=== PATIENT | female | born 1940 | race Caucasian/White ===

== ENCOUNTER 2017-02-28 11:00 | Emergency (ER) | payer OTHER ==
[~2017-02-28] VITALS: Ht 144.8 cm; Wt 66.4 kg
[~2017-02-28 11:00] MED LIST: ACET325T96 PO; ASPEC81 PO; ATOR10TA88 PO; CHOL100010 PO; ESCI1TAB10 PO; LEVE500T PO; LEVO25TA PO; LORA-741 PO; TRAZ1TAB16 PO; VENL75TA4 PO
[2017-02-28 11:08] VITALS: TEMP 36; Ht 144.8 cm; Wt 66.4 kg
[2017-02-28] MEDS ORDERED: ATV/1 PO (11:39)
[2017-02-28] MEDS ORDERED: LEVO50TA6 PO (11:39)
[2017-02-28] MEDS ORDERED: LTRSCR45 TOP (11:39)
[2017-02-28] MEDS ORDERED: MOML PO (11:39)
[2017-02-28] MEDS ORDERED: DOCU-94 PO (11:39)
[2017-02-28] MEDS ORDERED: MEMA1CAP2 PEG (11:39)
[2017-02-28] MEDS ORDERED: QUET1TAB30 PO (11:39)
[2017-02-28] MEDS ORDERED: ACET-1256 PO (11:39)
[2017-02-28] MEDS ORDERED: HYDR-5688 PO (11:39)
[2017-02-28] MEDS ORDERED: OXCA150T2 PO (11:39)
--- NOTE | 2017-02-28 12:25 | DIAGNOSTIC IMAGING REPORT ---
LEFT ANKLE 3 VIEWS CLINICAL HISTORY: Left leg injury. FINDINGS: 3 views of left ankle are obtained. No prior studies are available for comparison at the time of dictation. The skeletal structures are osteopenic. No fracture is seen. The ankle mortise is intact. Degenerative spurring is noted along the dorsal aspect of the tarsal bones. A tiny dorsal calcaneal enthesophyte is observed. There is no joint effusion. The overlying soft tissues are within normal limits. IMPRESSION: Osteopenia, degenerative change, and dorsal heel spur as above. No left ankle fracture is identified. Electronically signed by: Sb Martinez M.D. 02/28/2017 12:24 PM Dictated Date/Time: 02/28/2017 12:23 PM
--- NOTE | 2017-02-28 12:30 | DIAGNOSTIC IMAGING REPORT ---
LEFT FOOT 3 VIEWS CLINICAL HISTORY: Left foot injury. FINDINGS: 3 views of left foot are obtained. No prior studies are available for comparison at the time of dictation. The skeletal structures are osteopenic. There is questionable cortical irregularity at the base of the third and fourth metatarsals. Subtle fracture is not excluded. No additional findings are concerning for fracture. Mild arthritic change is present the first metatarsophalangeal joint. There is a dorsal calcaneal enthesophyte, and degenerative spurring is seen along the dorsal aspect of the tarsal bones. Mild soft tissue swelling suggested in the forefoot. IMPRESSION: 1. Soft tissue swelling is noted in the forefoot. 2. Mild cortical irregularity is seen at the base of the third and fourth metatarsals. This is indeterminant and subtle fracture is not excluded. Clinical point tenderness at this site. 3. No additional findings are concerning for acute fracture. 4. Osteopenia and degenerative change as above. Electronically signed by: Sb Martinez M.D. 02/28/2017 12:29 PM Dictated Date/Time: 02/28/2017 12:26 PM
[2017-02-28 13:40] VITALS: BP 154/86; PULSE 74; O2SAT 96
--- NOTE | 2017-02-28 14:02 | EMERGENCY ROOM VISIT NOTE ---
History Report prepared by Susan: Sue Loving Under the Supervision of: Dr. Bird Fernandez D.O. First contact with patient: 11:35 Chief Complaint: ANKLE PAIN Stated Complaint: ANKLE & FOOT PAIN History of Present Illness The patient is a 76 year old female who presents to the Emergency Room with complaints of worsening left ankle and left foot pain that started yesterday. The patient came to the ED via ambulance from home. EMS reported that the patient's left ankle is internally rotated at baseline secondary to a previous stroke. The patient's daughter states that the patient was sitting in her wheelchair last night while her caregiver was trying to change her pants when she slid out of the wheelchair. The patient's ankle internally rotated as she fell. The patient's daughter noticed ecchymosis on the patient's left lateral ankle today so she felt that she needed to be evaluated. The patient is not ambulatory. The patient's daughter states that she has decreased sensation in her left foot secondary to a previous stroke. Source of History: patient Onset: yesterday Position: ankle (left), foot (left) Quality: other (left ankle and left foot pain) Timing: worsening Note: ecchymosis on left lateral ankle Review of Systems See HPI for pertinent positives & negatives. A total of 10 systems reviewed and were otherwise negative. Past Medical & Surgical Medical Problems: (1) Acute ischemic stroke (2) Anxiety (3) Depression (4) Hemorrhagic stroke (5) Hypothyroidism (6) Seizure Family History Cancer Diabetes mellitus Heart disease Lung disease Social History Smoking Status: Never Smoker Housing Status: lives with family Current/Historical Medications Scheduled Aspirin (Aspirin EC Low Dose), 81 MG PO QAM Atorvastatin (Lipitor), 10 MG PO DAILY Docusate Sodium (Colace), 1 CAP PO BID Escitalopram Oxalate (Lexapro), 20 MG PO DAILY Hydrocodone/Acetaminophen 5MG/325MG ([place] 5MG/325MG), 1 TAB PO BID Levetiractam (Levetiracetam), 1,000 MG PO BID Levothyroxine Sodium (Levothyroxine Sodium), 1 TAB PO DAILY Memantine Hcl (Namenda Xr), 14 MG PEG DAILY Oxcarbazepine (Trileptal), 150 MG PO BID Quetiapine Fumarate (Seroquel), 25 MG PO QPM Scheduled PRN Acetaminophen (Tylenol), 500 MG PO Q6 PRN for Mild Pain Betamethasone/Clotrimazole (Clotrimazole/Betameth Crm 45 Gm), 1 APPL TOP UD PRN for SKI IMPAIRMENT Lorazepam (Ativan), 1 MG PO Q6H PRN for Anxiety Magnesium Hydroxide (Milk Of Magnesia), 30 ML PO DAILY PRN for Constipation Allergies Coded Allergies: Penicillins (Verified Allergy, Unknown, unknown, 08/26/14) Physical Exam Vital Signs Date Time Temp Pulse Resp B/P (MAP) Pulse Ox O2 Delivery O2 Flow Rate FiO2 02/28/17 13:15 77 16 154/86 96 Room Air 02/28/17 11:08 36.0 62 18 139/79 95 Room Air Physical Exam CONSTITUTIONAL/VITAL SIGNS: Reviewed / noted above. GENERAL: Non-toxic in appearance. INTEGUMENTARY: Warm, dry, and [place]. HEAD: Normocephalic. EYES: without scleral icterus or trauma. ENT/OROPHARYNX: clear and moist. LYMPHADENOPATHY/NECK: Is supple without lymphadenopathy or meningismus. RESPIRATORY: Lungs clear and equal. CARDIOVASCULAR: Regular rate and rhythm. GI/ABDOMEN: Soft and nontender. No organomegaly or pulsatile mass. No rebound or guarding. Normal bowel sounds. EXTREMITIES: Ecchymosis noted on the left lateral ankle and foot mainly in the area of the lateral malleolus. BACK: No CVA tenderness. NEUROLOGICAL: Intact without focal deficits. PSYCHIATRIC: normal affect. MUSCULOSKELETAL: Normally developed with good muscle tone. Medical Decision & Procedures ER Provider Diagnostic Interpretation: Radiology results as stated below per my review and radiologist interpretation: LEFT ANKLE 3 VIEWS FINDINGS: 3 views of left ankle are obtained. No prior studies are available for comparison at the time of dictation. The skeletal structures are osteopenic. No fracture is seen. The ankle mortise is intact. Degenerative spurring is noted along the dorsal aspect of the tarsal bones. A tiny dorsal calcaneal enthesophyte is observed. There is no joint effusion. The overlying soft tissues are within normal limits. IMPRESSION: Osteopenia, degenerative change, and dorsal heel spur as above. No left ankle fracture is identified. Electronically signed by: Sb Martinez M.D. 02/28/2017 12:24 PM Dictated Date/Time: 02/28/2017 12:23 PM LEFT FOOT 3 VIEWS FINDINGS: 3 views of left foot are obtained. No prior studies are available for comparison at the time of dictation. The skeletal structures are osteopenic. There is questionable cortical irregularity at the base of the third and fourth metatarsals. Subtle fracture is not excluded. No additional findings are concerning for fracture. Mild arthritic change is present the first metatarsophalangeal joint. There is a dorsal calcaneal enthesophyte, and degenerative spurring is seen along the dorsal aspect of the tarsal bones. Mild soft tissue swelling suggested in the forefoot. IMPRESSION: 1. Soft tissue swelling is noted in the forefoot. 2. Mild cortical irregularity is seen at the base of the third and fourth metatarsals. This is indeterminant and subtle fracture is not excluded. Clinical point tenderness at this site. 3. No additional findings are concerning for acute fracture. 4. Osteopenia and degenerative change as above. Electronically signed by: Sb Martinez M.D. 02/28/2017 12:29 PM Dictated Date/Time: 02/28/2017 12:26 PM ED Course 1253: Previous medical records were reviewed. The patient was evaluated in room C10. A complete history and physical examination was performed. 1256: After examination, I discussed the results and findings with the patient and her family. They verbalized agreement of the treatment plan. The patient was discharged home. Medical Decision Differentials considered include fracture, dislocation, neurovascular compromise , compartment syndrome, soft tissue injury. Medication Reconciliation: I attest that I have personally reviewed the patient' s current medication list. Patient was found to have a slightly elevated blood pressure due to circumstances. I do not believe that the patient requires hypertension monitoring. This is a 76-year-old female who presents to the ED with a chief complaint of left foot injury. Details listed above. Patient has ecchymosis of the lateral aspect of the proximal foot and left lateral malleolus. X-rays did not show an obvious fracture. There was a lucency in the base of the third and fourth metatarsals. The patient does not have point tenderness in this location. She has no discomfort with axial loading. The patient is nonambulatory. She is felt to be stable for discharge. Impression Primary Impression: Contusion of foot, left Scribe Attestation The scribe's documentation has been prepared under my direction and personally reviewed by me in its entirety. I confirm that the note above accurately reflects all work, treatment, procedures, and medical decision making performed by me. Departure Information Dispostion Home / Self-Care Referrals Андрей De Jesus D.O. (PCP) Forms HOME CARE DOCUMENTATION FORM, IMPORTANT VISIT INFORMATION Patient Instructions My [facility]
== END 2017-02-28 14:00 | disposition home or self-care (01) ==
LOC: EDBD 11:00 → C.EDC 11:01
DX: S90.32XA Contusion of left foot, initial encounter (principal); X50.9XXA Other and unspecified overexertion or strenuous movements or postures, initial encounter; F41.9 Anxiety disorder, unspecified; F32.9 Major depressive disorder, single episode, unspecified; E03.9 Hypothyroidism, unspecified; R56.9 Unspecified convulsions; Z83.3 Family history of diabetes mellitus; Z82.49 Family history of ischemic heart disease and other diseases of the circulatory system; Z79.82 Long term (current) use of aspirin

== ENCOUNTER 2017-10-04 14:00 | Emergency (ER) | payer OTHER ==
[~2017-10-04] VITALS: Ht 152.4 cm; Wt 62.0 kg
[~2017-10-04 14:00] MED LIST changes: +ACET-1256 PO; -ACET325T96 PO; +ATOR10TA82 PO; -ATOR10TA88 PO; +ATV/1 PO; -CHOL100010 PO; +DOCU-94 PO; +HYDR-5688 PO; -LEVO25TA PO; +LEVO50TA6 PO; -LORA-741 PO; +LTRSCR45 TOP; +MEMA1CAP2 PEG; +MOML PO; +OXCA150T2 PO; +QUET1TAB30 PO; -TRAZ1TAB16 PO; -VENL75TA4 PO
[2017-10-04 14:08] VITALS: Ht 152.4 cm; Wt 62.0 kg
[2017-10-04] MEDS ORDERED: ONDANSETRON INJ 2 MG/ML 2 ML VIAL IV STA (14:22)
[2017-10-04] MEDS ORDERED: MoRPHine SULFATE 4 MG/ML 1 ML CARP\\VIAL IV STA (14:22)
[2017-10-04] MEDS ORDERED: MEMA1CAP3 PO (14:55)
[2017-10-04] MEDS ORDERED: DIPH-437 PO (14:59)
[2017-10-04] MEDS ORDERED: POLY335019 PO (15:02)
[2017-10-04 15:16] LABS: BASO % 0.4 %; BASO ABS # 0.02 K/uL (0-0.2); EOS % 2.2 %; EOS ABS # 0.11 K/uL (0-0.5); HEMOGLOBIN 12.9 g/dL (12.0-16.0); IG# 0.01 K/uL (0.00-0.02); LYMPH % 32.5 %; LYMPH ABS # 1.62 K/uL (1.2-3.4); MEAN CORPUSCULAR HEMOGLOBIN 30.2 pg (25-34); MEAN CORPUSCULAR HGB CONC 33.9 g/dl (32-36); MEAN PLATELET VOLUME 9.8 fL (7.4-10.4); MONO % 10.6 %; MONO ABS # 0.53 K/uL (0.11-0.59); NEUT % 54.1 %; PLATELET COUNT 165 K/uL (130-400); RED CELL DISTRIBUTION WIDTH CV 13.3 % (11.5-14.5); RED CELL DISTRIBUTION WIDTH SD 43.4 fL (36.4-46.3); WHITE BLOOD COUNT 4.99 K/uL (4.8-10.8)
[2017-10-04 15:49] LABS: ALBUMIN 3.3 gm/dl (3.4-5.0); CALCIUM 8.5 mg/dl (8.5-10.1); CREATININE 0.77 mg/dl (0.60-1.20); POTASSIUM 4.5 mmol/L (3.5-5.1); TOTAL PROTEIN 7.3 gm/dl (6.4-8.2)
--- NOTE | 2017-10-04 16:08 | DIAGNOSTIC IMAGING REPORT ---
ABD/PELVIS WITHOUT FOR STONE HISTORY: 77 years-old Female flank pain eval for stone acute bilateral flank pain with concern for obstructing nephrolithiasis COMPARISON: None available TECHNIQUE: Multiple axial CT images of the abdomen and pelvis were obtained without the use of IV contrast. A dose lowering technique was used consistent with the principals of [place]. FINDINGS: Study is moderately motion degraded. Evaluation of the lung bases is limited secondary to respiratory motion. Bibasilar groundglass opacities suggest atelectasis/scarring. Indeterminate 4 mm pleural-based nodule of the right middle lobe, image 49 series 3. There is no pneumatosis or pneumoperitoneum identified. The imaged inferior cardiac chambers are mildly enlarged with coronary arterial disease. Evaluation of the solid abdominal organs is limited without the use of IV contrast. The liver, spleen, pancreas and adrenal glands are unremarkable. Gallbladder is not seen and may be surgically absent. 5 mm calcification of the inferior pole left kidney suggests nephrolithiasis. Renal vascular calcifications are seen on the right with 4 mm calcification of the inferior pole right kidney. Lobulated renal parenchyma is noted on the right with cortical lobulation or mass lesion measuring 13 mm involving the lateral interpolar right kidney. This can be further evaluated with dedicated ultrasound, image 128 series 3. Low attenuating 3.8 cm lesion of the inferior pole right kidney suggests possible renal cyst. No definite ureteral calculi or obstructive uropathy. Ureters appear unremarkable. Urinary bladder is mostly collapsed. Uterus and adnexa are unremarkable. Moderate to extensive atherosclerosis of the aorta with minimal ectasia of the infrarenal abdominal aorta, 2.1 cm. No aneurysm. No pathologic adenopathy. There is no bowel obstruction or focal bowel wall thickening identified. Moderate stool wire above the rectum. Mild to moderate colonic diverticulosis without CT evidence of acute diverticulitis. Terminal ileum appears unremarkable. The appendix is not seen. No evidence of acute appendicitis. Mild diastases recti. Small fat filled periumbilical hernia is noted, diastases 1.7 cm. The bones are demineralized. Age-indeterminate however chronic appearing Schmorl's node involves the superior endplate L2 with minimal anterior endplate wedging. IMPRESSION: 1. Motion degraded exam. 2. Bilateral renal calcifications suggest combination of renal vascular calcifications and nephrolithiasis. No ureteral calculi or obstructive uropathy. 3. No bowel obstruction or focal bowel wall thickening identified. 4. Cortical lobulation or indeterminate mildly exophytic lesion of the lateral interpolar right kidney, 13 mm. This could be further evaluated with ultrasound. 5. Diastases recti with tiny fat filled periumbilical hernia. The above report was generated using voice recognition software. It may contain grammatical, syntax or spelling errors. Electronically signed by: Ryan Crawley M.D. 10/04/2017 4:07 PM Dictated Date/Time: 10/04/2017 3:56 PM
[2017-10-04] MEDS ORDERED: SULFAMETHOXAZOLE/TRIMETHOPRIM DS 800/160MG TAB PO STA (16:44)
[2017-10-04] MEDS ORDERED: SULF800T23 PO (16:45)
[2017-10-04 17:46] VITALS: BP 161/64; PULSE 70; TEMP 36.7; O2SAT 94
--- NOTE | 2017-10-04 19:18 | EMERGENCY ROOM VISIT NOTE ---
History Report prepared by Susan: Jose Harden Under the Supervision of: Dr. Jose M Menjivar M.D. First contact with patient: 14:16 Chief Complaint: URINARY SYMPTOMS Stated Complaint: POSSIBLE KIDNEY STONE/UTI, COUGH AT NIGHT History of Present Illness The patient is a 77 year old female who presents to the Emergency Room with complaints of constant urinary symptoms beginning two days ago. Her symptoms include pain with urination, and increased frequency. She also complains of pain to her bilateral lower back as well as her urethra. The patient has a history of kidney stones, and feels that her symptoms are consistent with her previous kidney stones. She denies hematuria, vomiting, or fever. Source of History: patient Onset: Two days ago Position: other (Genitourinary) Quality: burning, other (urinary symptoms) Timing: constant Associated Symptoms: + back pain (bilateral lower), + urinary symptoms ( increased frequency, pain in urethra), No fevers, No vomiting Note: The patient denies hematuria. Review of Systems See HPI for pertinent positives & negatives. A total of 10 systems reviewed and were otherwise negative. Past Medical & Surgical Medical Problems: (1) Acute ischemic stroke (2) Anxiety (3) Depression (4) Hemorrhagic stroke (5) Hypothyroidism (6) Seizure Family History Cancer Diabetes mellitus Heart disease Lung disease Social History Smoking Status: Never Smoker Housing Status: lives with family Current/Historical Medications Scheduled Acetaminophen/Diphenhydramine (Tylenol Pm), 1 TAB PO HS Atorvastatin (Lipitor), 10 MG PO QPM Docusate Sodium (Colace), 100 MG PO BID Escitalopram Oxalate (Lexapro), 20 MG PO DAILY Levetiractam (Levetiracetam), 1,000 MG PO BID Levothyroxine Sodium (Levothyroxine Sodium), 50 MG PO DAILY Lorazepam (Ativan), 1 MG PO TID Memantine Hcl (Namenda Xr), 14 MG PO DAILY Oxcarbazepine (Trileptal), 150 MG PO BID Polyethylene Glycol 3350 (Miralax), 17 GM PO DAILY Quetiapine Fumarate (Seroquel), 25 MG PO QPM Sulfa/Trimethoprim (Bactrim Ds 800MG/160MG), 1 TAB PO BID Scheduled PRN Acetaminophen (Tylenol), 1,000 MG PO BID PRN for Mild Pain Betamethasone/Clotrimazole (Clotrimazole/Betameth Crm 45 Gm), 1 APPL TOP UD PRN for SKI IMPAIRMENT Allergies Coded Allergies: Penicillins (Verified Allergy, Unknown, unknown, 10/04/17) Physical Exam Vital Signs Date Time Temp Pulse Resp B/P (MAP) Pulse Ox O2 Delivery O2 Flow Rate FiO2 10/04/17 17:46 36.7 70 18 161/64 94 10/04/17 17:44 70 48 161/64 94 10/04/17 16:05 65 18 150/93 93 Room Air 10/04/17 14:08 36.7 70 20 114/67 94 Room Air Physical Exam Constitutional: Vital signs reviewed. Eyes: Pupils are equal round reactive to light. Conjunctiva are noninjected. ENT: Pharynx is clear without erythema or exudate. Mucous membranes are moist. Neck supple without meningeal signs. Respiratory: Clear to auscultation bilaterally. Breath sounds are equal bilaterally. Cardiovascular: Regular rate and rhythm. No rubs or gallops. GI: Soft, nondistended and nontender. Bowel sounds are present. Musculoskeletal: No peripheral edema. No CVA tenderness. Integumentary: No cyanosis. Neurological: The patient is awake and alert. No focal deficits. Psychiatric: Normal affect. Medical Decision & Procedures ER Provider Diagnostic Interpretation: Radiology results as stated below per my review and the radiologist's interpretation: ABD/PELVIS WITHOUT FOR STONE FINDINGS: Study is moderately motion degraded. Evaluation of the lung bases is limited secondary to respiratory motion. Bibasilar groundglass opacities suggest atelectasis/scarring. Indeterminate 4 mm pleural-based nodule of the right middle lobe, image 49 series 3. There is no pneumatosis or pneumoperitoneum identified. The imaged inferior cardiac chambers are mildly enlarged with coronary arterial disease. Evaluation of the solid abdominal organs is limited without the use of IV contrast. The liver, spleen, pancreas and adrenal glands are unremarkable. Gallbladder is not seen and may be surgically absent. 5 mm calcification of the inferior pole left kidney suggests nephrolithiasis. Renal vascular calcifications are seen on the right with 4 mm calcification of the inferior pole right kidney. Lobulated renal parenchyma is noted on the right with cortical lobulation or mass lesion measuring 13 mm involving the lateral interpolar right kidney. This can be further evaluated with dedicated ultrasound, image 128 series 3. Low attenuating 3.8 cm lesion of the inferior pole right kidney suggests possible renal cyst. No definite ureteral calculi or obstructive uropathy. Ureters appear unremarkable. Urinary bladder is mostly collapsed. Uterus and adnexa are unremarkable. Moderate to extensive atherosclerosis of the aorta with minimal ectasia of the infrarenal abdominal aorta, 2.1 cm. No aneurysm. No pathologic adenopathy. There is no bowel obstruction or focal bowel wall thickening identified. Moderate stool wire above the rectum. Mild to moderate colonic diverticulosis without CT evidence of acute diverticulitis. Terminal ileum appears unremarkable. The appendix is not seen. No evidence of acute appendicitis. Mild diastases recti. Small fat filled periumbilical hernia is noted, diastases 1.7 cm. The bones are demineralized. Age-indeterminate however chronic appearing Schmorl's node involves the superior endplate L2 with minimal anterior endplate wedging. IMPRESSION: 1. Motion degraded exam. 2. Bilateral renal calcifications suggest combination of renal vascular calcifications and nephrolithiasis. No ureteral calculi or obstructive uropathy. 3. No bowel obstruction or focal bowel wall thickening identified. 4. Cortical lobulation or indeterminate mildly exophytic lesion of the lateral interpolar right kidney, 13 mm. This could be further evaluated with ultrasound. 5. Diastases recti with tiny fat filled periumbilical hernia. The above report was generated using voice recognition software. It may contain grammatical, syntax or spelling errors. Electronically signed by: Ryan Crawley M.D. 10/04/2017 4:07 PM Laboratory Results 10/04/17 15:02 Red Blood Count 4.27, Mean Corpuscular Volume 89.0, Mean Corpuscular Hemoglobin 30.2, Mean Corpuscular Hemoglobin Concent 33.9, Mean Platelet Volume 9.8, Neutrophils (%) (Auto) 54.1, Lymphocytes (%) (Auto) 32.5, Monocytes (%) (Auto) 10.6, Eosinophils (%) (Auto) 2.2, Basophils (%) (Auto) 0.4, Neutrophils # (Auto ) 2.70, Lymphocytes # (Auto) 1.62, Monocytes # (Auto) 0.53, Eosinophils # (Auto ) 0.11, Basophils # (Auto) 0.02 10/04/17 15:02 Test 10/04/17 15:02 2/12/18 15:20 White Blood Count 4.99 K/uL (4.8-10.8) Red Blood Count 4.27 M/uL (4.2-5.4) Hemoglobin 12.9 g/dL (12.0-16.0) Hematocrit 38.0 % (37-47) Mean Corpuscular Volume 89.0 fL (80-100) Mean Corpuscular Hemoglobin 30.2 pg (25-34) Mean Corpuscular Hemoglobin Concent 33.9 g/dl (32-36) Platelet Count 165 K/uL (130-400) Mean Platelet Volume 9.8 fL (7.4-10.4) Neutrophils (%) (Auto) 54.1 % Lymphocytes (%) (Auto) 32.5 % Monocytes (%) (Auto) 10.6 % Eosinophils (%) (Auto) 2.2 % Basophils (%) (Auto) 0.4 % Neutrophils # (Auto) 2.70 K/uL (1.4-6.5) Lymphocytes # (Auto) 1.62 K/uL (1.2-3.4) Monocytes # (Auto) 0.53 K/uL (0.11-0.59) Eosinophils # (Auto) 0.11 K/uL (0-0.5) Basophils # (Auto) 0.02 K/uL (0-0.2) RDW Standard Deviation 43.4 fL (36.4-46.3) RDW Coefficient of Variation 13.3 % (11.5-14.5) Immature Granulocyte % (Auto) 0.2 % Immature Granulocyte # (Auto) 0.01 K/uL (0.00-0.02) Anion Gap 7.0 mmol/L (3-11) Est Creatinine Clear Calc Drug Dose 49.5 ml/min Estimated GFR () 85.7 Estimated GFR (Non- 74.0 BUN/Creatinine Ratio 17.3 (10-20) Calcium Level 8.5 mg/dl (8.5-10.1) Total Bilirubin 0.3 mg/dl (0.2-1) Direct Bilirubin mg/dl (0-0.2) Aspartate Amino Transf (AST/SGOT) 34 U/L (15-37) Alanine Aminotransferase (ALT/SGPT) 41 U/L (12-78) Alkaline Phosphatase 88 U/L (45-117) Total Protein 7.3 gm/dl (6.4-8.2) Albumin 3.3 gm/dl (3.4-5.0) Lipase 136 U/L (73-393) Chemistry Specimen Hemolysis Urine Color YELLOW Urine Appearance SL CLOUDY (CLEAR) Urine pH 5.5 (4.5-7.5) Urine Specific [place] >= 1.030 (1.000-1.030) Urine Protein TRACE (NEG) Urine Glucose (UA) NEG (NEG) Urine Ketones NEG (NEG) Urine Occult Blood 2+ (NEG) Urine Nitrite NEG (NEG) Urine Bilirubin NEG (NEG) Urine Urobilinogen NEG (NEG) Urine Leukocyte Esterase MODERATE (NEG) Urine RBC 5-10 /hpf (0-4) Urine WBC >30 /hpf (0-5) Urine Epithelial Cells >30 /lpf (0-5) Urine Bacteria 1+ (NEG) Urine Hyaline Casts 1-5 /lpf (0-5) Laboratory results as reviewed by me. Medications Administered Medications (Trade) Dose Ordered Sig/Janine Route Start Time Stop Time Status Last Admin Dose Admin Morphine Sulfate (MoRPHine SULFATE INJ) 2 mg ONE STAT IV 10/04/17 14:22 10/04/17 14:23 DC 10/04/17 15:13 2 MG Ondansetron HCl (Zofran Inj) 4 mg NOW STAT IV 10/04/17 14:22 10/04/17 14:23 DC 10/04/17 15:12 4 MG Trimethoprim/ Sulfamethoxazole (Septra Ds 800/ 160MG Tab) 1 tab NOW STAT PO 10/04/17 16:44 10/04/17 16:45 DC 10/04/17 16:44 1 TAB ED Course 1418: The patient was evaluated in room C2B. A complete history and physical exam was performed. 1422: Ordered Zofran Inj 4 mg IV, Morphine Sulfate 2 mg IV. 1644: Ordered Septra Ds 800/160 mg PO. 1642: Upon reevaluation, the patient appeared to have improvement of her symptoms. I discussed jake's findings with her and her daughter. They verbalized agreement of the treatment plan. The patient was discharged home. Medical Decision This is a 77-year-old female who presents with urinary symptoms and lower back pain. Differential diagnosis includes UTI, ureterolithiasis, hydronephrosis, pyelonephritis, strain. I did perform a limited focused review of portions of the patient's old chart on the electronic medical record. The patient has had no recent pertinent visits to this hospital. I did evaluate the patient as noted above. The patient is presenting with a 2 day history of urinary burning with frequency. She also complains of lower back pain which she states is consistent with her prior history of kidney stones. IV access was established. I did treat the patient with 2 mg of morphine IV and Zofran 4 mg IV. I did order and personally review the patient' s urinalysis as described above. A urine culture was sent. The patient was treated with Bactrim. I did order and review the patient's blood work as noted in the electronic medical record. Her white blood cell count is not elevated. I did order a CT of the abdomen and pelvis. I did review the images myself as well as the radiology report as described above. She does not have any obstructive uropathy. I did reassess the patient. She is feeling better. I did discuss the test results with the patient and her family. I did recommend close follow-up with her doctors. She was discharged with a 10 day prescription for Bactrim. Medication Reconcilliation Current Medication List: was personally reviewed by me Blood Pressure Screening Patient's blood pressure: Normal blood pressure Blood pressure disposition: Did not require urgent referral Impression Primary Impression: UTI (urinary tract infection) Additional Impression: Low back pain Scribe Attestation The scribe's documentation has been prepared under my direct and personally reviewed by me in its entirety. I confirm that the note above accurately reflects all work, treatment, procedures, and medical decision making performed by me. Departure Information Dispostion Home / Self-Care Prescriptions Sulfa/Trimethoprim (Bactrim Ds 800MG/160MG) Tab 1 TAB PO BID for 10 Days, #20 TAB Prov: Jose M Menjivar M.D. 10/04/17 Referrals Андрей De Jesus D.O. (PCP) Forms HOME CARE DOCUMENTATION FORM, IMPORTANT VISIT INFORMATION Patient Instructions My [facility], UTI Additional Instructions You have been examined and treated today on an emergency basis only. This is not a substitute for, or an effort to provide, complete comprehensive medical care. It is impossible to recognize and treat all injuries or illnesses in a single emergency department visit. It is therefore important that you follow up closely with your physician. Call as soon as possible for an appointment. Return for worsening symptoms or if you develop fever, vomiting, or any other concerning symptoms. Problem Qualifiers Primary Impression: UTI (urinary tract infection) Urinary tract infection type: site unspecified Hematuria presence: with hematuria Qualified Codes: N39.0 - Urinary tract infection, site not specified ; R31.9 - Hematuria, unspecified Additional Impression: Low back pain Chronicity: unspecified Back pain laterality: unspecified Sciatica presence : unspecified whether sciatica present Qualified Codes: M54.5 - Low back pain
== END 2017-10-04 17:35 | disposition home or self-care (01) ==
LOC: C.EDB 14:02 → C.EDC 17:35
DX: N39.0 Urinary tract infection, site not specified (principal); M54.5 Low back pain; F41.9 Anxiety disorder, unspecified; F32.9 Major depressive disorder, single episode, unspecified; E03.9 Hypothyroidism, unspecified; R56.9 Unspecified convulsions; N28.89 Other specified disorders of kidney and ureter; K42.9 Umbilical hernia without obstruction or gangrene; Z87.442 Personal history of urinary calculi; Z86.73 Personal history of transient ischemic attack (TIA), and cerebral infarction without residual deficits; Z83.3 Family history of diabetes mellitus; Z88.0 Allergy status to penicillin